=== PATIENT | male | born 1995 | race African-American/Black ===

== ENCOUNTER 2018-11-16 15:47 | Emergency (ER) | payer OTHER ==
--- NOTE | 2018-11-16 16:34 | EDM.PDOC ---
ED HPI GENERAL MEDICAL PROBLEM - General Chief Complaint: Abdominal Pain Stated Complaint: ABD PAIN Time Seen by Provider: 11/16/18 16:10 Source of Information: Reports: Patient, RN Notes Reviewed History Limitations: Reports: No Limitations - History of Present Illness INITIAL COMMENTS - FREE TEXT/NARRATIVE: Patient is a 22-year-old male who presents to the ED for the evaluation of abdominal discomfort. The patient notes that this is located mostly in his epigastrium, this pain is a burning type of pain in nature. The patient notes that the burning type of pain worsens if he is drinking alcohol or eats too many spacey foods. He states that he takes Tums as needed and this does provide pretty good symptomatic relief. He thinks that the symptoms are increasing in nature, around 4 times per week. He states that he drinks alcohol pretty regularly on a nightly basis. He further notes that sometimes the pain is worse when he is laying flat at night, and is worse some night at midnight or in the wee hours of the night. He further denies any nausea/ vomiting/diarrhea, chest pain, shortness of breath. He notes that he has had a normal BM, is on a normal scheduled for him. This pain does not radiate anywhere and is located in the middle of his upper abdomen. Treatments NETWORK CONTROLLER: Reports: Other (see below) Other Treatments NETWORK CONTROLLER: TUMS Abdomen Pain Score (Numeric/FACES): 4 - Related Data Allergies Allergy/AdvReac Type Severity Reaction Status Date / Time No Known Allergies Allergy Verified 11/16/18 16:11 Home Meds: Home Meds . [No Known Home Meds] 11/16/18 [History] Past Medical History - Past Health History Medical/Surgical History: Denies Medical/Surgical History Social & Family History - Tobacco Use Smoking Status *Q: Never Smoker - Caffeine Use Caffeine Use: Reports: Coffee, Energy Drinks, Soda, Tea - Recreational Drug Use Recreational Drug Use: No ED ROS GENERAL - Review of Systems Review Of Systems: See Below Constitutional: Denies: Fever, Chills HEENT: Reports: No Symptoms Respiratory: Reports: No Symptoms Cardiovascular: Reports: No Symptoms Endocrine: Reports: No Symptoms GI/Abdominal: Reports: Abdominal Pain (epigastric), Other (heartburn). Denies: Black Stool, Bloody Stool, Constipation, Diarrhea, Decreased Appetite, Difficulty Swallowing, Nausea, Vomiting : Denies: Discharge, Dysuria Musculoskeletal: Reports: No Symptoms Skin: Reports: No Symptoms Neurological: Reports: No Symptoms Psychiatric: Reports: No Symptoms Hematologic/Lymphatic: Reports: No Symptoms Immunologic: Reports: No Symptoms ED EXAM, GI/ABD - Physical Exam Exam: See Below Exam Limited By: No Limitations General Appearance: Alert, WD/WN, No Apparent Distress Eyes: Bilateral: Normal Appearance Ears: Normal External Exam Nose: Normal Inspection Throat/Mouth: Normal Inspection, Normal Lips, Normal Teeth, Normal Gums, Normal Oropharynx, Normal Voice, No Airway Compromise Head: Atraumatic, Normocephalic Neck: Normal Inspection Respiratory/Chest: No Respiratory Distress, Lungs Clear, Normal Breath Sounds, No Accessory Muscle Use, Chest Non-Tender Cardiovascular: Normal Peripheral Pulses, Regular Rate, Rhythm, No Murmur GI/Abdominal Exam: Normal Bowel Sounds, Soft, No Distention, No Mass, Tender ( over epigastrium) Extremities: Normal Inspection, Normal Capillary Refill Neurological: Alert, Oriented, Normal Cognition, No Motor/Sensory Deficits Psychiatric: Normal Affect, Normal Mood Skin Exam: Warm, Dry, Intact, Normal Color, No Rash Course - Vital Signs Last Recorded V/S: Last Vital Signs Temp 97.8 F 11/16/18 16:08 Pulse 64 11/16/18 16:08 Resp 20 11/16/18 16:08 BP 165/101 H 11/16/18 16:08 Pulse Ox 100 11/16/18 16:08 - Re-Assessments/Exams Free Text/Narrative Re-Assessment/Exam: 11/16/18 16:44 Patient presents to the ED for evaluation of burning type abdominal pain. His symptoms are suspicious for heart burn, I have given general recommendations and urge him to follow up with the clinic if his symptoms persist if the conservative treatment plan is not providing him further relief. Patient is amenable to this plan and agrees to comply. Departure - Departure Time of Disposition: 16:29 Disposition: Home, Self-Care 01 Condition: Fair Clinical Impression: Heartburn - Discharge Information *PRESCRIPTION DRUG MONITORING PROGRAM REVIEWED*: No *COPY OF PRESCRIPTION DRUG MONITORING REPORT IN PATIENT VALARIE: No Instructions: Indigestion, [id number], Heartburn, [id number] Referrals: PCP,None [Primary Care Provider] - Forms: ED Department Discharge Additional Instructions: You have been evaluated in the ED today for your upper abdominal pain. Your pain is likely due to heartburn. There is not a lot of testing that can be done for heartburn, this is more of a clinical diagnosis. General recommendation is for conservative management at the beginning of symptoms. Recommend that you obtain omeprazole (prilosec) and take one tab daily by mouth for heartburn symptom relief. You may also sleep with your head slightly elevated at night to provide further relief of symptoms, if your pain is worse at night however. Please refrain from eating too many spicy foods, or drinking too much alcohol, as this can make the heartburn symptoms worse. Recommend that you follow up with a family practice provider, our clinic number is [phone], please do so and roughly 1-1-1/2 weeks time for follow-up and further management of your symptoms. Please return to the ED if your symptoms change or worsen.
== END 2018-11-16 16:40 | disposition home or self-care (01) ==
LOC: JD.ED 15:47
DX: R12 Heartburn (principal)
CPT/HCPCS: 99282; 99283

== ENCOUNTER 2019-07-18 15:39 | Emergency (ER) | payer OTHER ==
--- NOTE | 2019-07-18 17:27 | EDM.PDOC ---
ED HPI GENERAL MEDICAL PROBLEM - General Chief Complaint: Chest Pain Stated Complaint: CHEST AND ARM PAIN Time Seen by Provider: 07/18/19 15:58 Source of Information: Reports: Patient History Limitations: Reports: No Limitations - History of Present Illness INITIAL COMMENTS - FREE TEXT/NARRATIVE: The patient presents with chest pain and palpitations. This has been going on for about 3 days. It comes and goes. He says it feels like his heart is pounding at times. He has no history of this before. He does not feel short of breath. He has no fever, chills or cough. He has no abdominal pain, nausea or vomiting. Onset: Gradual Duration: Day(s): (3) Location: Reports: Chest Quality: Reports: Sharp Severity: Mild Improves with: Reports: None Worsens with: Reports: None Associated Symptoms: Reports: Chest Pain. Denies: Cough, Fever/Chills, Headaches, Nausea/Vomiting, Shortness of Breath Chest Pain Score (Numeric/FACES): 5 - Related Data Allergies Allergy/AdvReac Type Severity Reaction Status Date / Time No Known Allergies Allergy Verified 07/18/19 15:48 Home Meds: Home Meds . [No Known Home Meds] 11/16/18 [History] Past Medical History - Past Health History Medical/Surgical History: Denies Medical/Surgical History Social & Family History - Caffeine Use Caffeine Use: Reports: Coffee, Energy Drinks, Soda, Tea ED ROS GENERAL - Review of Systems Review Of Systems: See Below Constitutional: Reports: No Symptoms HEENT: Reports: No Symptoms Respiratory: Reports: No Symptoms Cardiovascular: Reports: Chest Pain, Palpitations Endocrine: Reports: No Symptoms GI/Abdominal: Reports: No Symptoms : Reports: No Symptoms Musculoskeletal: Reports: No Symptoms ED EXAM, GENERAL - Physical Exam Exam: See Below Exam Limited By: No Limitations General Appearance: Alert, No Apparent Distress Ears: Normal External Exam Nose: Normal Inspection Head: Atraumatic, Normocephalic Neck: Normal Inspection, Supple, Non-Tender Respiratory/Chest: No Respiratory Distress, Lungs Clear, Normal Breath Sounds Cardiovascular: Regular Rate, Rhythm, No Edema, No Murmur GI/Abdominal: Soft, Non-Tender, No Organomegaly, No Mass Back Exam: Normal Inspection Extremities: Normal Inspection EKG INTERPRETATION EKG Date: 07/18/19 Time: 15:52 Rhythm: NSR Rate (Beats/Min): 69 [employer]: Normal P-Wave: Present QRS: Normal ST-T: Normal QT: Normal Course - Vital Signs Last Recorded V/S: Last Vital Signs Temp 97.0 F 07/18/19 15:48 Pulse 67 07/18/19 15:48 Resp 16 07/18/19 15:48 BP 138/89 07/18/19 15:48 Pulse Ox 97 07/18/19 15:48 - Orders/Labs/Meds Orders: Active Orders 24 hr Category Date Time Status Cardiac Monitoring [RC] . DIRECTED Care 07/18/19 16:18 Active EKG Documentation Completion [RC] STAT Care 07/18/19 16:18 Active Chest 2V [CR] Stat Exams 07/18/19 16:18 Taken Labs: Laboratory Tests 07/18/19 07/18/19 07/18/19 Range/Units 16:30 16:30 16:30 WBC 4.59 (4.23-9.07) K/mm3 RBC 4.94 (4.63-6.08) M/mm3 Hgb 14.3 (13.7-17.5) gm/dl Hct 43.5 (40.1-51.0) % MCV 88.1 (79.0-92.2) fl MCH 28.9 (25.7-32.2) pg MCHC 32.9 (32.2-35.5) g/dl RDW Std Deviation 42.7 (35.1-43.9) fL Plt Count 233 (163-337) K/mm3 MPV 9.9 (9.4-12.3) fl Neut % (Auto) 52.5 (34.0-67.9) % Lymph % (Auto) 35.7 (21.8-53.1) % [place] % (Auto) 8.9 (5.3-12.2) % Eos % (Auto) 2.2 (0.8-7.0) Baso % (Auto) 0.7 (0.1-1.2) % Neut # (Auto) 2.41 (1.78-5.38) K/mm3 Lymph # (Auto) 1.64 (1.32-3.57) K/mm3 [place] # (Auto) 0.41 (0.30-0.82) K/mm3 Eos # (Auto) 0.10 (0.04-0.54) K/mm3 Baso # (Auto) 0.03 (0.01-0.08) K/mm3 D-Dimer, Quantitative 0.23 (0.19-0.50) mg/L Sodium 139 (136-145) mEq/L Potassium 3.7 (3.5-5.1) mEq/L Chloride 102 (98-107) mEq/L Carbon Dioxide 27 (21-32) mEq/L Anion Gap 13.7 (5-15) BUN 20 H (7-18) mg/dL Creatinine 1.3 (0.7-1.3) mg/dL Est Cr Clr Drug Dosing 84.04 mL/min Estimated GFR (MDRD) > 60 (>60) mL/min BUN/Creatinine Ratio 15.4 (14-18) Glucose 112 H (74-106) mg/dL Calcium 9.2 (8.5-10.1) mg/dL Total Bilirubin 0.4 (0.2-1.0) mg/dL AST 58 H (15-37) U/L ALT 86 H (16-63) U/L Alkaline Phosphatase 80 (46-116) U/L Troponin I < 0.017 (0.00-0.056) ng/mL Total Protein 8.2 (6.4-8.2) g/dl Albumin 4.1 (3.4-5.0) g/dl Globulin 4.1 gm/dL Albumin/Globulin Ratio 1.0 (1-2) - Re-Assessments/Exams Free Text/Narrative Re-Assessment/Exam: 07/18/19 17:25 I ordered an EKG, CXR, and labs. His EKG shows a NSR with no acute changes. His CXR looks good. His CBC looks good. His liver enzymes were slightly elevated. His troponin and D-dimer were negative. Departure - Departure Time of Disposition: 17:30 Disposition: Home, Self-Care 01 Condition: Good Clinical Impression: Atypical chest pain Referrals: PCP,None [Primary Care Provider] - Justin Freeman PA-C [[employer] Executive Producer] - 1 Week Additional Instructions: Take tylenol or motrin for pain. Drink plenty of fluids. Your liver enzymes were slightly elevated. Follow up with Justin Freeman within a week to have them rechecked. Please return if you are worse. Sepsis Event Note - Evaluation Sepsis Screening Result: No Definite Risk - Focused Exam Vital Signs: Vital Signs Temp Pulse Resp BP Pulse Ox 07/18/19 15:48 97.0 F 67 16 138/89 97 Date Exam was Performed: 07/18/19 Time Exam was Performed: 17:22 - My Orders Last 24 Hours: My Active Orders 07/18/19 16:18 Cardiac Monitoring [RC] . DIRECTED EKG Documentation Completion [RC] STAT Chest 2V [CR] Stat - Assessment/Plan Last 24 Hours: My Active Orders 07/18/19 16:18 Cardiac Monitoring [RC] . DIRECTED EKG Documentation Completion [RC] STAT Chest 2V [CR] Stat
--- NOTE | 2019-07-20 10:47 | CR ---
Chest: Two views of the chest were obtained. Comparison: No prior chest imaging. Heart size and mediastinum are normal. Lungs are clear. No discrete osseous abnormality is seen. Impression: 1. Nothing acute is appreciated on two-view chest x-ray. Diagnostic code #1 This report was dictated in [place] Standard Time
== END 2019-07-18 17:45 | disposition home or self-care (01) ==
LOC: JD.ED 15:39
DX: R07.89 Other chest pain (principal)
CPT/HCPCS: 36415; 71046; 71046-26; 80053; 84484; 85025; 85379; 93005; 93010; 99283; 99285-25